=== PATIENT | female | born 1940 | race Caucasian/White ===

== ENCOUNTER 2019-09-10 08:37 | Inpatient (IN) | payer MEDICARE ==
[2019-09-10] MEDS ORDERED: Furosemide 80 MG Tab PO ONE (08:57)
[2019-09-10] MEDS ORDERED: Morphine 2 MG/ML SYRINGE IVPUSH ONE (08:58)
[2019-09-10] MEDS ORDERED: Furosemide 100 MG/10 ML SDV IV ONE (09:04)
--- NOTE | 2019-09-10 09:07 | EDM.PDOC ---
ED HPI GENERAL MEDICAL PROBLEM - General Stated Complaint: ER Time Seen by Provider: 09/10/19 08:45 Source of Information: Reports: Patient History Limitations: Reports: No Limitations - History of Present Illness INITIAL COMMENTS - FREE TEXT/NARRATIVE: Pt. presents to ER with complaints of increased shortness of breath. Daughter states that she has been experiencing this progressively over the past 4 days. Pt. was seen in [facility] on 09/06/2019 with increased shortness of breath and peripheral edema. She was started on lasix 20mg once daily and set up for an echocardiogram. Pt. has not diagnosed history of CHF. She does have a history of hypertension. Pt. denies any fever or chills. No chest pain. Denies any palpitations. Denies any nausea, vomiting, or diarrhea. Pt. is a smoker and has a history of COPD. It appears she is only on albuterol and not taking any maintenance medications for this. She has been seen in ER in the past for COPD exacerbation. Daughter states that she lives alone. She states that they have not discussed code status, and at this point, they want everything done in terms of treatment. O2 saturation on arrival to ER was approx. 50%. Nursing placed the patient on O2 per mask and it increased into the high 90% range. Onset Date: 09/07/19 Location: Reports: Chest, Generalized - Related Data Allergies Allergy/AdvReac Type Severity Reaction Status Date / Time Penicillins Allergy Cannot Verified 09/10/19 09:45 Remember Home Meds: Home Meds Acetaminophen/Diphenhydramine [Acetaminophen Pm Gelcap] 1 each PO BEDTIME PRN 10/19/13 [History] Albuterol Sulfate [Albuterol Sulfate HFA] 2 puff IH Q4H PRN 10/19/13 [History] Cholecalciferol (Vitamin D3) [Vitamin D] 2,000 unit PO DAILY 10/19/13 [History] Hydrochlorothiazide 25 mg PO DAILY 10/19/13 [History] Levothyroxine 125 mcg PO ACBRK 10/19/13 [History] Mag Hydrox/Aluminum Hyd/Simeth [Alum-Mag Hydroxide-Simeth Liq] 1 tab PO DAILY 10/19/13 [History] Simvastatin 10 mg PO DAILY 10/19/13 [History] lisinopriL [Prinivil] 10 mg PO DAILY 10/19/13 [History] metFORMIN [Glucophage] 1,000 mg PO BID 10/19/13 [History] traMADol [Ultram] 100 mg PO BID 10/19/13 [History] Clobetasol [Clobetasol Propionate 0.05%] 30 gm TOP BID 09/10/19 [History] Furosemide [Lasix] 20 mg PO DAILY 09/10/19 [History] buPROPion HCL [Wellbutrin Sr] 150 mg PO DAILY 09/10/19 [History] Past Medical History HEENT History: Reports: Cataract Cardiovascular History: Reports: High Cholesterol, Hypertension Respiratory History: Reports: Asthma, Bronchitis, Recurrent, COPD Other Respiratory History: Denies any significant respiratory history, however does have Spiriva Inhaler and Albuterol prescibed to her that she uses when the weather is humid Gastrointestinal History: Reports: None Genitourinary History: Reports: UTI, Recurrent Musculoskeletal History: Reports: Back Pain, Chronic, Osteoarthritis Other Musculoskeletal History: Has history of chronic back pain that she states has had since she was 7-8 years old. Also, states has some arthritis in her back. Neurological History: Reports: None Endocrine/Metabolic History: Reports: Diabetes, Type II, Hypothyroidism, Other (See Below) Other Endocrine/Metabolic History: goiter, mgd Hematologic History: Reports: Other (See Below) Other Hematologic History: hypocalcemia, vit d def, Oncologic (Cancer) History: Reports: Bladder Dermatologic History: Reports: Psoriasis - Past Surgical History HEENT Surgical History: Reports: Cataract Surgery Female Surgical History: Reports: Section, D&C, Tubal Ligation Social & Family History - Caffeine Use Caffeine Use: Reports: Coffee - Living Situation & Occupation Living situation: Reports: Alone Occupation: Unemployed ED ROS GENERAL - Review of Systems Review Of Systems: See Below Constitutional: Reports: Fatigue HEENT: Reports: No Symptoms Respiratory: Reports: Shortness of Breath. Denies: Wheezing, Cough, Sputum, Hemoptysis Cardiovascular: Reports: Dyspnea on Exertion, Orthopnea Endocrine: Reports: No Symptoms GI/Abdominal: Reports: No Symptoms : Reports: No Symptoms Musculoskeletal: Reports: No Symptoms Skin: Reports: No Symptoms Neurological: Reports: No Symptoms Psychiatric: Reports: No Symptoms Hematologic/Lymphatic: Reports: No Symptoms Immunologic: Reports: No Symptoms ED EXAM, GENERAL - Physical Exam Exam: See Below Exam Limited By: No Limitations General Appearance: Alert, WD/WN, Anxious, Mild Distress Eye Exam: Bilateral Eye: EOMI, PERRL Head: Atraumatic, Normocephalic Neck: Normal Inspection, Supple, Non-Tender, Full Range of Motion Respiratory/Chest: Decreased Breath Sounds, Crackles Cardiovascular: Normal Peripheral Pulses, Regular Rate, Rhythm Extremities: Normal Range of Motion, Non-Tender, Normal Capillary Refill Neurological: Alert, Oriented, CN II-XII Intact, Normal Cognition, Normal Ref lexes, No Motor/Sensory Deficits Psychiatric: Normal Affect, Normal Mood Skin Exam: Warm, Dry, Intact, Normal Color, No Rash EKG INTERPRETATION Rhythm: NSR QRS: LBBB Course - Vital Signs Last Recorded V/S: Last Vital Signs Temp Pulse 89 09/10/19 09:35 Resp 20 09/10/19 09:59 BP 120/57 L 09/10/19 09:35 Pulse Ox 93 L 09/10/19 09:59 - Orders/Labs/Meds Orders: Active Orders 24 hr Category Date Time Status EKG Documentation Completion [RC] STAT Care 09/10/19 08:55 Active CULTURE BLOOD [BC] Stat Lab 09/10/19 09:12 Received CULTURE BLOOD [BC] Stat Lab 09/10/19 09:19 Received Sodium Chloride 0.9% [Saline Flush] Med 09/10/19 08:55 Active 10 ml FLUSH ASDIRECTED PRN Blood Culture x2 Reflex Set [OM.PC] Stat Oth 09/10/19 08:56 Ordered Peripheral IV Insertion Adult [OM.PC] Routine Oth 09/10/19 08:56 Ordered Medication Orders Sodium Chloride (Saline Flush) 10 ml FLUSH ASDIRECTED PRN PRN Reason: Keep Vein Open Labs: Laboratory Tests 09/10/19 09/10/19 09/10/19 Range/Units 09:12 09:12 09:12 WBC 5.7 (4.0-10.0) x10^3/uL RBC 4.97 (4.00-5.50) x10^6/uL Hgb 11.8 L D (12.0-16.0) g/dL Hct 40.2 (33.0-47.0) % MCV 80.9 D (78.0-93.0) fL MCH 23.7 L (26.0-32.0) pg MCHC 29.4 L (32.0-36.0) g/dL RDW Coeff of Shannon 17.6 H (10.0-15.0) % Plt Count 156 (130-400) x10^3/uL Neut % (Auto) 83.2 H (50.0-80.0) % Lymph % (Auto) 8.9 L (25.0-50.0) % Coles % (Auto) 7.2 (2.0-11.0) % Eos % (Auto) 0.5 (0.0-4.0) % Baso % (Auto) 0.2 (0.2-1.2) % PT 10.7 (9.5-12.3) SEC INR 1.0 L (2.0-3.5) POC ABG pH (7.35-7.45) POC ABG pCO2 (35-45) mmHG POC ABG pO2 (80-105) mmHG POC ABG HCO3 (22-26) mmol/L POC ABG Total CO2 (23-27) mmol/L POC ABG O2 Sat (95-98) % POC ABG Base Excess (-2-3) mmol/L POC O2 Flow Rate L/min POC FiO2 Sodium 138 (136-145) mmol/L Potassium 4.6 (3.5-5.1) mmol/L Chloride 97 L (98-107) mmol/L Carbon Dioxide 38 H D (21-32) mmol/L Anion Gap 7.6 L (10-20) mmol/L BUN 45 H (7-18) mg/dL Creatinine 1.7 H (0.55-1.02) mg/dL Est Cr Clr Drug Dosing 24.94 mL/min Estimated GFR (MDRD) 29 Glucose 131 H (74-106) mg/dL Lactic Acid (0.4-2.0) mmol/L Calcium 9.0 (8.5-10.1) mg/dL Corrected Calcium 9.56 (8.5-10.1) mg/dL Magnesium 1.8 (1.8-2.4) mg/dL Total Bilirubin 0.5 (0.2-1.0) mg/dL AST 18 (15-37) U/L ALT 18 (14-59) U/L Alkaline Phosphatase 64 (46-116) U/L Troponin I 0.024 (<=0.056) ng/mL C-Reactive Protein 0.4 (<=0.9) mg/dL NT-Pro-B Natriuret Pep (<=450) pg/mL Total Protein 7.2 (6.4-8.2) g/dL Albumin 3.3 L (3.4-5.0) g/dL Globulin 3.9 Albumin/Globulin Ratio 0.85 POC Result Comm COVID-19 (LYSSA) (NEGATIVE) 09/10/19 09/10/19 09/10/19 Range/Units 09:12 09:12 09:30 WBC (4.0-10.0) x10^3/uL RBC (4.00-5.50) x10^6/uL Hgb (12.0-16.0) g/dL Hct (33.0-47.0) % MCV (78.0-93.0) fL MCH (26.0-32.0) pg MCHC (32.0-36.0) g/dL RDW Coeff of Shannon (10.0-15.0) % Plt Count (130-400) x10^3/uL Neut % (Auto) (50.0-80.0) % Lymph % (Auto) (25.0-50.0) % Coles % (Auto) (2.0-11.0) % Eos % (Auto) (0.0-4.0) % Baso % (Auto) (0.2-1.2) % PT (9.5-12.3) SEC INR (2.0-3.5) POC ABG pH (7.35-7.45) POC ABG pCO2 (35-45) mmHG POC ABG pO2 (80-105) mmHG POC ABG HCO3 (22-26) mmol/L POC ABG Total CO2 (23-27) mmol/L POC ABG O2 Sat (95-98) % POC ABG Base Excess (-2-3) mmol/L POC O2 Flow Rate L/min POC FiO2 Sodium (136-145) mmol/L Potassium (3.5-5.1) mmol/L Chloride (98-107) mmol/L Carbon Dioxide (21-32) mmol/L Anion Gap (10-20) mmol/L BUN (7-18) mg/dL Creatinine (0.55-1.02) mg/dL Est Cr Clr Drug Dosing mL/min Estimated GFR (MDRD) Glucose (74-106) mg/dL Lactic Acid 1.3 (0.4-2.0) mmol/L Calcium (8.5-10.1) mg/dL Corrected Calcium (8.5-10.1) mg/dL Magnesium (1.8-2.4) mg/dL Total Bilirubin (0.2-1.0) mg/dL AST (15-37) U/L ALT (14-59) U/L Alkaline Phosphatase (46-116) U/L Troponin I (<=0.056) ng/mL C-Reactive Protein (<=0.9) mg/dL NT-Pro-B Natriuret Pep 4094 H (<=450) pg/mL Total Protein (6.4-8.2) g/dL Albumin (3.4-5.0) g/dL Globulin Albumin/Globulin Ratio POC Result Comm COVID-19 (LYSSA) Negative (NEGATIVE) 09/10/19 Range/Units 10:00 WBC (4.0-10.0) x10^3/uL RBC (4.00-5.50) x10^6/uL Hgb (12.0-16.0) g/dL Hct (33.0-47.0) % MCV (78.0-93.0) fL MCH (26.0-32.0) pg MCHC (32.0-36.0) g/dL RDW Coeff of Shannon (10.0-15.0) % Plt Count (130-400) x10^3/uL Neut % (Auto) (50.0-80.0) % Lymph % (Auto) (25.0-50.0) % Coles % (Auto) (2.0-11.0) % Eos % (Auto) (0.0-4.0) % Baso % (Auto) (0.2-1.2) % PT (9.5-12.3) SEC INR (2.0-3.5) POC ABG pH 7.305 L (7.35-7.45) POC ABG pCO2 81 H* (35-45) mmHG POC ABG pO2 65 L (80-105) mmHG POC ABG HCO3 40 H (22-26) mmol/L POC ABG Total CO2 43 H (23-27) mmol/L POC ABG O2 Sat 89 L (95-98) % POC ABG Base Excess 14 H (-2-3) mmol/L POC O2 Flow Rate 4.00 L/min POC FiO2 0.36 Sodium (136-145) mmol/L Potassium (3.5-5.1) mmol/L Chloride (98-107) mmol/L Carbon Dioxide (21-32) mmol/L Anion Gap (10-20) mmol/L BUN (7-18) mg/dL Creatinine (0.55-1.02) mg/dL Est Cr Clr Drug Dosing mL/min Estimated GFR (MDRD) Glucose (74-106) mg/dL Lactic Acid (0.4-2.0) mmol/L Calcium (8.5-10.1) mg/dL Corrected Calcium (8.5-10.1) mg/dL Magnesium (1.8-2.4) mg/dL Total Bilirubin (0.2-1.0) mg/dL AST (15-37) U/L ALT (14-59) U/L Alkaline Phosphatase (46-116) U/L Troponin I (<=0.056) ng/mL C-Reactive Protein (<=0.9) mg/dL NT-Pro-B Natriuret Pep (<=450) pg/mL Total Protein (6.4-8.2) g/dL Albumin (3.4-5.0) g/dL Globulin Albumin/Globulin Ratio POC Result Comm Called critical res COVID-19 (LYSSA) (NEGATIVE) Meds: Medications Generic Name Dose Route Start Last Admin Trade Name Freq PRN Reason Stop Dose Admin Sodium Chloride 10 ml 09/10/19 08:55 Saline Flush FLUSH ASDIRECTED PRN Keep Vein Open Discontinued Medications Generic Name Dose Route Start Last Admin Trade Name Freq PRN Reason Stop Dose Admin Furosemide 60 mg 09/10/19 08:57 09/10/19 09:20 Lasix PO 09/10/19 08:58 Not Given ONETIME ONE Furosemide 60 mg 09/10/19 09:04 09/10/19 09:20 Lasix IV 09/10/19 09:05 Not Given ONETIME ONE Furosemide Confirm 09/10/19 09:16 09/10/19 09:12 Lasix Administered 09/10/19 09:17 60 mg Dose Administration 60 mg .ROUTE .STK-MED ONE Morphine Sulfate 2 mg 09/10/19 08:58 09/10/19 09:17 Morphine IVPUSH 09/10/19 08:59 2 mg ONETIME ONE Administration - Radiology Interpretation Free Text/Narrative:: CHF, no obvious infiltrate noted. - Re-Assessments/Exams Free Text/Narrative Re-Assessment/Exam: Room air O2 sat was 50%. She was placed on O2 per non-rebreather and saturation improved to the mid to high 90s. Pt. was given lasix 60mg IV and morphine 2 mg IV. She reported feeling much improved a short time later. Lung sounds improved significantly. Departure - Departure Time of Disposition: 10:44 Disposition: DC/Tfer to [facility] 02 Clinical Impression: Congestive heart failure - Discharge Information Sepsis Event Note (ED) - Focused Exam Vital Signs: Vital Signs Pulse Resp BP Pulse Ox 09/10/19 09:59 20 93 L 09/10/19 09:35 89 20 120/57 L 91 L 09/10/19 09:12 20 98 09/10/19 09:06 20 97 09/10/19 08:57 20 98 09/10/19 08:40 92 20 140/59 L 46 L - Problem List Review Problem List Initiated/Reviewed/Updated: Yes - My Orders Last 24 Hours: My Active Orders 09/10/19 08:55 EKG Documentation Completion [RC] STAT Sodium Chloride 0.9% [Saline Flush] 10 ml FLUSH ASDIRECTED PRN 09/10/19 08:56 Blood Culture x2 Reflex Set [OM.PC] Stat Peripheral IV Insertion Adult [OM.PC] Routine 09/10/19 09:12 CULTURE BLOOD [BC] Stat 09/10/19 09:19 CULTURE BLOOD [BC] Stat - Assessment/Plan Last 24 Hours: My Active Orders 09/10/19 08:55 EKG Documentation Completion [RC] STAT Sodium Chloride 0.9% [Saline Flush] 10 ml FLUSH ASDIRECTED PRN 09/10/19 08:56 Blood Culture x2 Reflex Set [OM.PC] Stat Peripheral IV Insertion Adult [OM.PC] Routine 09/10/19 09:12 CULTURE BLOOD [BC] Stat 09/10/19 09:19 CULTURE BLOOD [BC] Stat Plan: Pt. will be admitted acutely by Dr. Hernandez. Discussed findings with patient and family. They wish for the patient to be a code 1. All questions were answered.
[2019-09-10] MEDS ORDERED: Furosemide 20 MG/2 ML VIAL ONE (09:16)
[2019-09-10 10:00] LABS: ANION GAP 7.6 mmol/L (10-20)
--- NOTE | 2019-09-10 10:01 | CR ---
[id number] RAD/RAD Chest PA or AP 1V EXAM: RAD Chest PA or AP 1V INDICATION: SHORTNESS OF BREATH. COMPARISON: March 2015. DISCUSSION: Cardiomegaly and central vascular congestion. Bilateral pleural effusions and bibasal parenchymal opacities. Bilateral lower lobe predominant interlobular septal thickening. Findings are most consistent with fluid retention secondary, likely CHF exacerbation. IMPRESSION: As above. Buck Zee MD 09/10/19 1000 Thank you for allowing us to participate in the care of your patient.
[2019-09-10] MEDS ORDERED: Albuterol/Ipratropium 3.0-0.5 MG/3 ML Neb Soln NEB PRN (11:26)
[2019-09-10] MEDS ORDERED: Aspirin 81 MG Tab.Chew PO SCH (11:38)
[2019-09-10] MEDS: Aspirin 81 MG Tab.EC PO SCH (12:30)
[2019-09-10] MEDS: Enoxaparin 40 MG/0.4 ML Syringe SUBCUT SCH (12:30)
[2019-09-10] MEDS ORDERED: Acetaminophen/Diphenhydramine 500-25 MG Tab PO PRN (14:30)
[2019-09-10] MEDS: Albuterol/Ipratropium 3.0-0.5 MG/3 ML Neb Soln NEB SCH ×2 (14:49→22:43)
[2019-09-10] MEDS: Nicotine 14 MG/24 Hr Patch TRDERM SCH (20:13)
[2019-09-10] MEDS: traMADol 50 MG Tab PO SCH (20:14)
[2019-09-10] MEDS: Simvastatin 10 MG Tab PO SCH (20:14)
--- NOTE | 2019-09-10 21:27 | HP ---
CHIEF COMPLAINT: Shortness of breath. HISTORY OF PRESENT ILLNESS: This is a 78-year-old female who has no history of heart failure, but has been on hydrochlorothiazide for blood pressure, who was in the clinic last week due to depression and weight gain. She had been in the office in July and had gained 6 pounds in 1 month and had increased edema with some weeping of the legs, but no chest pain. The patient was started on Lasix, but her breathing did not improve. A couple of days ago, she sort of went for a ride with her son and the golf cart and injured her knee, which made her feel worse, and then today she woke up early during the night, almost needed help to get to the bathroom. Her family brought her to the clinic this morning, but due to her respiratory distress, she was encouraged to go to the ER. The patient has not had any fever, chills. She had some coughing and does have a history of smoking and COPD, but she feels like her cough was getting better. She was not coughing up anything. She was using her inhaler and at times it was helping more than others. The patient is not on oxygen at home. When she got to the ER, her saturations were around 50% and she felt significantly better when they placed her on oxygen. The patient received 60 mg of Lasix and 2 mg of IV morphine and improved in a short time in the ER. The patient otherwise feels like her leg is better today. One leg is not more swollen than the other. ALLERGIES: Do include penicillin. MEDICATION LIST: Reviewed. Shows her to be on Lasix 20 mg daily, Wellbutrin should be XL 150 daily, metformin 1000 b.i.d., tramadol 100 mg daily, Zocor 10 mg daily, lisinopril 10 mg daily, levothyroxine 125 daily, albuterol 2 puffs every 4 hours as needed for wheezing, hydrochlorothiazide 25 mg daily, clobetasol cream, antacid, Benadryl, vitamin D3. PAST MEDICAL HISTORY: Includes COPD, uses albuterol p.r.n. Used to be on Spiriva, but used it infrequently. Hospitalized for pneumonia only once. Degenerative joint disease of the low back, on tramadol; diabetes type 2, on metformin; generalized osteoarthritis in the knees; goiter, surgically removed at [facility]; history of bladder cancer; hyperlipidemia; essential hypertension; hypothyroidism; obesity; psoriasis; smoking, continues; previous UTI with Klebsiella; vitamin D deficiency. PAST SURGICAL HISTORY: The patient has had thyroidectomy, cystoscopy for bladder tumor removal, , cholecystectomy, and cataract surgery. FAMILY HISTORY: Both parents are . 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 She has 5 children. She is a current smoker. No alcohol use. REVIEW OF SYSTEMS: General: The patient has had weight gain. She has not had fever, chills. Has had more weakness. Psychologic: She has had more depression. It was noted in a recent visit that she was concerned about going into a fpc. She was started on bupropion SR, but only once daily, so we will change her to XL here. Cardiac: No chest pain, no palpitations, but has orthopnea, but chronically normally sleeps in a chair. She has had edema. Respiratory: As stated in HPI. Abdomen: No nausea, vomiting, diarrhea. Otherwise, all systems reviewed and found to be negative unless otherwise stated. PHYSICAL EXAMINATION: Vital Signs: Hospital admission, temperature 96.7, weight 97.9 kg. Blood pressure 99/51, respiratory rate 14, O2 of 91% on 2.5 L, earlier today 96% on 4 L. General: She is in no acute distress. Heart: Regular rate and rhythm. S1, S2 without murmur. She does appear mildly pale. Lungs: Her lung sounds are decreased throughout. I currently do not appreciate any crackles, but reported earlier this morning by the ER provider. Abdomen: Nondistended, nontender. Extremities: Warm and dry. She has 2+ edema to the mid koch. She has some weeping, but no open sores or ulcers. She has some excoriations and dryness to her ankles. Neck: Otherwise, lymphadenopathy is not present in her cervical area. I did not appreciate any JVD and she is mildly obese. LABORATORY WORK: Did show negative troponin 0.024, but proBNP 4094 similar to the other day. COVID negative. Albumin 3.3. Sodium 138, potassium 4.6, chloride 97, bicarb 38, BUN 45, creatinine 1.7, which is up from 1.3 a month ago, and she admitted to taking NSAIDs. Then, glucose 131, lactic 1.3, calcium 9, magnesium 1.8. ALT, AST, bilirubin, alk phos all normal. White count normal 5.7, hemoglobin 11.8, similar to previous checks, platelets 156. INR 1. ABG: pH 7.3, pCO2 high at 81, pO2 of 65, HCO3 of 40. ASSESSMENT: 1. Acute on chronic heart failure exacerbation, unspecified. Could be systolic versus diastolic. Echo is pending as an outpatient. 2. Acute on chronic renal failure, possibly due to hypotension, and newly started on Lasix. 3. Diabetes type 2, well controlled, not on long-term insulin without complications. 4. Chronic obstructive pulmonary disease and current smoking. 5. Generalized osteoarthritis. 6. Hypothyroidism. 7. Depression. PLAN: At this point, the patient is admitted. EKG was reviewed. No acute IN. She has a left bundle-branch block, which she did have in the past. She will be placed on telemetry. We will give her IV Lasix 60 mg to continue q.12 hours. We will continue oxygen. I will also place her on scheduled and p.r.n. DuoNebs. We will do daily weights and monitor in's and out's. We will get Digital Account Supervisor involved as well. I will get her up and working with therapies. Anticipate she will need at least a 2-night stay. For her mild anemia, we will repeat a hemoglobin tomorrow, but she is at risk for DVT. Therefore, I will place her on Lovenox 40 mg daily. For her diabetes, we will do q.i.d. Accu- Cheks. We will hold on the metformin for now given her renal insufficiency and start insulin if indicated. DEBBIA: 09/10/2019 17:42:19 MODL: 09/10/2019 21:19:04 /[id number]
[2019-09-11] MEDS ORDERED: Levothyroxine 125 MCG Tab PO SCH (07:00)
[2019-09-11] MEDS: Albuterol/Ipratropium 3.0-0.5 MG/3 ML Neb Soln NEB SCH ×3 (07:18→22:06)
[2019-09-11 07:30] LABS: ANION GAP 5.5 mmol/L (10-20)
[2019-09-11] MEDS ORDERED: Aluminum Hydroxide/Magnesium Hydroxide/Simethicone Susp 30 ML Cup PO SCH (08:00)
[2019-09-11] MEDS: Aspirin 81 MG Tab.EC PO SCH (08:26)
[2019-09-11] MEDS: buPROPion 150 MG Tab.ER PO SCH (08:26)
[2019-09-11] MEDS: traMADol 50 MG Tab PO SCH (08:26)
[2019-09-11] MEDS: Nicotine 14 MG/24 Hr Patch TRDERM SCH (08:26)
[2019-09-11] MEDS: Enoxaparin 40 MG/0.4 ML Syringe SUBCUT SCH (08:33)
--- NOTE | 2019-09-11 10:08 | CR ---
[id number] RAD/RAD Chest PA And Lateral EXAM: RAD Chest PA And Lateral INDICATION: HYPOXIA. COMPARISON: September 10, 2019. DISCUSSION: The heart is enlarged. Mild central pulmonary vascular congestion is not changed. Mall bilateral pleural effusions. Associated atelectasis. Pulmonary hyperinflation. IMPRESSION: Stable chest with findings consistent with CHF exacerbation. Moshe Moyer DO 09/11/19 1007 Thank you for allowing us to participate in the care of your patient.
[2019-09-11] MEDS ORDERED: traMADol 50 MG Tab PO PRN (17:17)
--- NOTE | 2019-09-11 17:56 | PN ---
Progress Note for FEDE KRUEGER Date: 09/11/2019 Room #: VM.204 SUBJECTIVE: This is hospital day #2 on a 78-year-old admitted with an acute heart failure exacerbation. She has no history of heart failure and was supposed to have an echo today outpatient for her EF. However, she is in the hospital now. She got 60 mg of IV Lasix yesterday due to low blood pressures. I did not repeat the dose. She had good diuresis of 1.7 L. She feels like her breathing has improved. She is denying any cough. She denies any chest pain. Her oxygen has been weaned down to 2.5 L from 4 L on admission. She is normally not on oxygen at home. She continues to smoke. She got her nicotine patch today. She has been afebrile. Eating 100% of her meals. Has not yet had a bowel movement. OBJECTIVE: Vital Signs: Her temperature 97.9, pulse 76, blood pressure 89/42, respiratory rate 16, O2 of 93% on 2.5 L. She has also had several blood pressures repeated. It has been over 100 systolic on the right arm when it was low on the left, but then later the nurse stated the left arm was higher. They have been checking them all manually. The patient reports that her blood pressure was not an issue in the past, but she got placed on lisinopril. I told her that was likely due to her diabetes. She has had well-controlled blood sugars off metformin. General: She is in no acute distress. Heart: Regular rate and rhythm. S1, S2 without murmur. Lungs: Sounds are clear to auscultation bilaterally without crackles or wheezes. Abdomen: Nondistended. Extremities: Warm and dry. Still trace edema to the ankles. Mental Status: She is alert and orientated x3. Neck: No JVD was appreciated. LABORATORY DATA: Her lab work today did show her white count to be normal at 4.9, hemoglobin dropped to 10.3, platelets 125. Sodium 140, potassium 4.5, chloride 98, bicarb 41, BUN 44, creatinine 1.8, glucose 83. Troponin 0.029, normal. Calcium is 9. ASSESSMENT AND PLAN: 1. Acute on chronic heart failure exacerbation, unspecified. Further diuresis held today due to hypotension. The patient is asymptomatic. 2. History of hypertension, but now with hypotension. The patient is asymptomatic. We will continue to monitor. 3. Acute on chronic renal failure. Her creatinine worsened slightly, up to 1.8 today. We will recheck tomorrow. 4. Type 2 diabetes, controlled off metformin. 5. Chronic obstructive pulmonary disease, chronic. She is on scheduled and p.r.n. nebulizers. 6. Depression. She is on bupropion. 7. Chronic pain due to osteoarthritis. She is on her tramadol, but we will change it to p.r.n. 8. Smoking. She is on a nicotine patch. 9. Hypothyroidism, replaced. PLAN: At this point, the patient will continue on acute cares. She will continue off IV diuretics with close monitoring of blood pressure. We will see if we can re-dose tomorrow. Chest x-ray that was repeated today still shows small bilateral pleural effusions. Due to her hypercapnia on initial ABG, I will check a venous ABG in the morning. We will continue with oxygen. She will likely need a home O2 study prior to discharge. MKA: 09/11/2019 17:22:39 MODL: 09/11/2019 17:50:01 /[id number]
[2019-09-11] MEDS: Simvastatin 10 MG Tab PO SCH (20:00)
[2019-09-12] MEDS: Levothyroxine 125 MCG Tab PO SCH (06:24)
[2019-09-12 07:03] LABS: ANION GAP 1.9 mmol/L (10-20)
[2019-09-12] MEDS: Albuterol/Ipratropium 3.0-0.5 MG/3 ML Neb Soln NEB SCH ×3 (07:07→22:01)
[2019-09-12] MEDS ORDERED: Furosemide 20 MG/2 ML VIAL IV ONE (08:43)
[2019-09-12] MEDS: Nicotine 14 MG/24 Hr Patch TRDERM SCH (08:49)
[2019-09-12] MEDS: buPROPion 150 MG Tab.ER PO SCH (08:51)
[2019-09-12] MEDS: Aspirin 81 MG Tab.EC PO SCH (08:52)
[2019-09-12] MEDS: Doxycycline 100 MG Cap PO SCH ×2 (09:04→19:32)
[2019-09-12] MEDS: Sodium Chloride 0.9% 10 ML Syringe FLUSH PRN (09:06)
--- NOTE | 2019-09-12 11:21 | PN ---
Progress Note for FEDE KRUEGER Date: 09/12/2019 Room #: VM.204 SUBJECTIVE: This is hospital day #3 on a 78-year-old admitted with an acute on chronic heart failure exacerbation, unknown if systolic or diastolic. She has no history of heart disease or heart failure despite significant smoking history. She had been on hydrochlorothiazide, recently was started on 20 mg daily of Lasix, but her breathing got worse. She states she is coughing more again, even more in the hospital than she was at home. She has not been on oxygen, but she has had lower sats like 86% to 88% in the clinic and is a long- term smoker, but has not ever been admitted with pneumonia or exacerbation, and used albuterol only infrequently, and in the past Spiriva infrequently. She has been afebrile. She is denying any pain in her chest. She does have some pain in the right knee, which she did fall on a few days ago. She does not feel an x- ray is needed. She has had chronic arthritis and even had injections remotely. She normally takes tramadol up to twice daily at home, but has not used any doses since yesterday morning. OBJECTIVE: Vital Signs: Her temperature is 98.8, pulse 79, blood pressure 98/50, respiratory rate 20, O2 of 92 on 3 L, she was 94 on 2-1/2 during the night. Heart: Regular rate and rhythm without murmur. Lungs: Sounds are clear to auscultation, but decreased without crackles or wheezes. Abdomen: Nondistended, nontender. She has not had a bowel movement. Extremities: Warm and dry. She has tenderness to palpation of both shins. She still has 1+ edema to both shins. She was on DVT prophylaxis on admission, however, hemoglobin had dropped, so this has been held. It is stable today at 10.1. Mental Status: She is alert and orientated x3. Psychiatric: She is a little upset about not getting salt. The benefits of a low-salt diet were explained to her. LABORATORY DATA: Lab work does show white count 7.4, hemoglobin 10.1, platelets 108. PCO2 was 79 on venous blood gas, it was over 80 on admission. She never was placed on BiPAP. She has not been somnolent or sleepy. Sodium 139, potassium 4.9, chloride 99, bicarb 43, BUN 43, creatinine 1.8, glucose 99, calcium 8.9. Troponin yesterday was negative. ASSESSMENT AND PLAN: 1. Acute heart failure exacerbation. She does not have a history of this, it newly started in the clinic last week. We will continue diuresis today with 20 mg IV x1, yesterday it was held due to hypotension. 2. History of hypertension, on DEWEY inhibitor and hydrochlorothiazide, but now with hypotension. It is asymptomatic, her blood pressure. We will continue to monitor closely, especially giving Lasix. 3. Acute on chronic renal failure. Creatinine is the same today. Baseline is around 1.3. We will recheck tomorrow. 4. Type 2 diabetes, controlled off metformin. She is on no medications currently. We will decrease her Accu-Cheks to twice daily. 5. Chronic obstructive pulmonary disease, chronic, probably with an exacerbation. She is on p.r.n. nebulizers and scheduled. She does not think they are helping. I am going to go ahead and treat her with 7 days of doxycycline for exacerbation. 6. Depression. She is on bupropion, recently started. 7. Chronic pain with osteoarthritis and a recent right knee injury. She is working with PT. She has tramadol available p.r.n. 8. Smoking. She is on the nicotine patch. 9. Hypothyroidism, replaced, level was normal in July. 10.Acute on chronic hypoxic and hypercapnic respiratory failure. The patient will very likely go home on oxygen. We will do a home O2 eval. I will also have them titrate her oxygen down targeting a level of 88% due to her hypercapnia. PLAN: At this point, the patient will continue acute cares. We will give her an IV dose of Lasix today. Repeat lab work tomorrow including venous ABGs. Repeat a chest x-ray tomorrow. Home O2 eval. Work on having a bowel movement and check for blood in her stool. She has been taken off all NSAIDs in the previous months due to worsening renal insufficiency. Dietitian consult also for a low-salt diet. MKA: 09/12/2019 09:34:02 MODL: 09/12/2019 11:15:13 /[id number] EMERITA
[2019-09-12] MEDS: Simvastatin 10 MG Tab PO SCH (19:32)
[2019-09-13] MEDS: Levothyroxine 125 MCG Tab PO SCH (06:27)
[2019-09-13] MEDS: Albuterol/Ipratropium 3.0-0.5 MG/3 ML Neb Soln NEB SCH ×3 (06:28→22:56)
[2019-09-13 07:18] LABS: ANION GAP 2.7 mmol/L (10-20)
[2019-09-13] MEDS ORDERED: Bisacodyl 10 MG Supp RECTAL ONE (09:03)
[2019-09-13] MEDS ORDERED: Furosemide 20 MG/2 ML VIAL IV ONE (09:09)
[2019-09-13] MEDS: Nicotine 14 MG/24 Hr Patch TRDERM SCH (09:15)
[2019-09-13] MEDS: Aspirin 81 MG Tab.EC PO SCH (09:17)
[2019-09-13] MEDS: buPROPion 150 MG Tab.ER PO SCH (09:17)
[2019-09-13] MEDS: Doxycycline 100 MG Cap PO SCH ×2 (09:17→20:50)
[2019-09-13] MEDS: Sodium Chloride 0.9% 10 ML Syringe FLUSH PRN (09:40)
[2019-09-13] MEDS: Enoxaparin 30 MG/0.3 ML Syringe SUBCUT SCH (09:41)
--- NOTE | 2019-09-13 10:20 | PN ---
Progress Note for FEDE KRUEGER Date: 09/13/2019 Room #: VM.204 SUBJECTIVE: This is hospital day #4 on a 78-year-old admitted with an acute heart failure exacerbation with a new diagnosis of heart failure in the previous week. Unknown if it is systolic or diastolic. Her troponins were negative. She also has underlying COPD and is smoking, but was not on oxygen. Her sats were at 50%. Yesterday, they were at 80% on room air during her limited home O2 eval. The patient's telemetry has had a significant amount of artifact. It does not appear that she had any abnormal rhythms. They will be changing out her leads today. She states she feels much better. She is hopeful to go home because she cannot sleep here. She can get limited visitors only. The patient was able to get 20 mg of IV Lasix yesterday and her blood pressure has been excellent. She has had a total of 2100 out now and is eating 100% of her meals, but has not had a bowel movement since admission. The patient is on tramadol p.r.n. for pain. Did take some initially for her knee pain, but has not used any in the last 2 days. She states she takes sleeping pills at home and nothing has been ordered for her here. She had CO2 retention and her pCO2 continues to be elevated. She was encouraged to try BiPAP. She is considering trying it this evening. We did initially avoid it due to concern for claustrophobia. Her hemoglobins have remained stable. We have not gotten a Hemoccult due to no stools. I will be restarting Lovenox today. Blood sugars are excellent. She is denying pain. She did injure her right knee around 08/31. She was working with PT, but has not yet done steps. OBJECTIVE: Vital Signs: Today, her temperature 97.4, pulse 80, blood pressure 111/48, respiratory rate 17, O2 of 91% on 3 L, was 2 L last evening, was 86%. General: She is in no acute distress. Heart: Regular rate and rhythm. S1, S2 without murmur. Lungs: Lung sounds are decreased, but no crackles. No wheezes appreciated. Abdomen: Nondistended. Extremities: Warm and dry. She still has 2+ edema to her shins with Bean wraps in place. However, she is sitting in her chair all day. She did try it in the bed last night, but did not tolerate it. Mental Status: She is alert and oriented x3. Psych: She seems depressed. She talks about not getting to see her grandkids regularly due to the COVID. LABORATORY WORK: Today does show her to have a white count of 5.1, hemoglobin 10.2, platelets 112. PCO2 of venous was 82. Her sodium 142, potassium 4.7, chloride 100, bicarb 44, BUN 39, creatinine 1.4, glucose 108, calcium 9.1. ASSESSMENT: 1. Acute heart failure exacerbation. No ejection fraction on file. Outpatient echo is planned. We will give her another 20 mg of intravenous Lasix today. As her blood pressure looks to be okay, anticipate it may go lower, like around 90 systolic, which would be okay. 2. History of hypertension. Due to hypotension, BEAN inhibitor and hydrochlorothiazide have been on hold. 3. Acute on chronic renal failure. Her creatinine improved down to 1.4 from 1.8. Her baseline is 1.3. 4. Type 2 diabetes, well controlled, off metformin. 5. Chronic obstructive pulmonary disease, chronic, with exacerbation. She is now on doxycycline day #2 and p.r.n. and scheduled nebulizers. She is using p.r.n.'s. We will check a chest x-ray tomorrow. 6. Depression. She is on bupropion, recently started. 7. Insomnia. We will try a small dose of Klonopin tonight due to the fact she is in the hospital with close monitoring and has not used tramadol. 8. CO2 retention. 9. Acute hypoxic and hypercapnic respiratory failure. She seems stable, but due to hypercapnia, we are going to try some BiPAP. 10.Smoking. 11.Hypothyroidism. PLAN: The patient will continue acute care. She was hoping to go home. Discussed with her that going home would mean more of a comfort and palliative measure and she is not ready for that. Understands that we are still working on things to medically optimize her. We will have to repeat that home O2 eval. We will get PT to keep working with her and do stairs today. We will repeat lab work tomorrow. We will get the stool study for Hemoccult even if we need to do a supp to get her bowels going, and we will try a dose of Lovenox today for DVT prophylaxis as she would be high risk. MKA: 09/13/2019 09:18:30 MODL: 09/13/2019 10:14:28 /[id number]
[2019-09-13] MEDS: Simvastatin 10 MG Tab PO SCH (20:50)
[2019-09-13] MEDS: ClonazePAM 0.5 MG Tab PO SCH (20:50)
[2019-09-14] MEDS: Albuterol/Ipratropium 3.0-0.5 MG/3 ML Neb Soln NEB SCH ×2 (06:16→15:51)
[2019-09-14] MEDS: Levothyroxine 125 MCG Tab PO SCH (06:16)
[2019-09-14 07:08] LABS: ANION GAP 1.4 mmol/L (10-20)
[2019-09-14] MEDS: Nicotine 14 MG/24 Hr Patch TRDERM SCH (09:34)
[2019-09-14] MEDS: Aspirin 81 MG Tab.EC PO SCH (09:36)
[2019-09-14] MEDS: buPROPion 150 MG Tab.ER PO SCH (09:36)
[2019-09-14] MEDS: Doxycycline 100 MG Cap PO SCH ×2 (09:36→20:02)
--- NOTE | 2019-09-14 09:50 | CR ---
[id number] RAD/RAD Chest PA And Lateral EXAM: RAD Chest PA And Lateral CLINICAL DATA: HYPOXIA COMPARISON: CORRELATION IS MADE WITH SEPTEMBER 11, 2019 FINDINGS: The lungs are clear. The cardiomediastinal contour is enlarged but stable. The regional bones and soft tissues are unremarkable. IMPRESSION: NO ACUTE PROCESS. Americo Ordonez MD 09/14/19 0949 Thank you for allowing us to participate in the care of your patient.
[2019-09-14] MEDS: Enoxaparin 30 MG/0.3 ML Syringe SUBCUT SCH (10:25)
--- NOTE | 2019-09-14 16:37 | DISCH ---
PRIMARY DISCHARGE DIAGNOSES: 1. Acute heart failure exacerbation with outpatient echocardiogram planned, unknown if it is systolic or diastolic. 2. Acute on chronic chronic obstructive pulmonary disease with exacerbation. 3. Acute hypoxic respiratory failure secondary to chronic obstructive pulmonary disease and heart failure. 4. Hypertension with hypotension after diuresis. 5. Acute on chronic renal failure, improved with diuresis. Creatinine of 1.3 on discharge, which is her baseline. 6. Type 2 diabetes, well controlled, off metformin. 7. Depression, recently started on bupropion. 8. Insomnia. The patient normally sleeps in a chair. She was given Klonopin at bedtime and finally got a couple of hours of sleep last night. 9. CO2 retention, improved, but unable to tolerate BiPAP. 10.Smoking. 11.Hypothyroidism. REASON FOR ADMISSION: On the date of admission, this 78-year-old female who had recently been started on outpatient 20 mg daily of Lasix, came into the clinic but was transitioned over to the ER for O2 saturations of 50% on room air. The patient was given IV Lasix 60 mg. She had good diuresis, but by the next hospital day, she was too hypotensive for further Lasix yesterday. Then, I was able to give her another 20 mg IV, and she has had good output and overall is breathing better, feeling better. She was initially hopeful to go home, but then she realized that she needed some more help and is working with therapies. She is agreeable to stay on for a swing bed stay. She is denying any pain. Had injured 2 days prior to admission her right leg and knee but overall that has been doing okay. Overall, she is down 2.7 L of fluid. She did have a bowel movement yesterday without needing a suppository. Her Hemoccult was negative. Her hemoglobin remained stable at 10.4. She was receiving Lovenox for DVT prophylaxis. The patient is going over to swing bed for further therapies. She also will need her home O2 evaluation repeated. At one point, she was 80% on room air but did not have the official RT walking evaluation since she was too weak to do it with the therapist. Her discharging weight is 94 kg, which is down 6 pounds since admission. PHYSICAL EXAMINATION: Vital Signs: Discharging vitals today do include her to have a weight of 94.3 kg; temperature 98; pulse 83; blood pressure 96/48 but otherwise they have been above 100, on her left arm, it was 103/54; respiratory rate 18; and O2 of 92% on 2 L. General: She is in no acute distress. Heart: Regular rate and rhythm. S1, S2 without murmur. Lungs: Lung sounds decreased but no crackles or wheezes. Abdomen: Distended. She has a ventral hernia but no tenderness. Extremities: Warm and dry. She still has 2+ edema, but she has been sitting in the chair with her legs down. Mental Status: She is alert and orientated x3. Psychiatric: She is not depressed or anxious. DISCHARGING LABORATORY DATA: Include her to have a normal white count of 4.2, hemoglobin 10.4. ABG: pCO2 of 76 by venous. Platelet 107, it has been mildly low since admission. Creatinine 1.3, bicarbonate 45, and BUN 37. DISCHARGE PLANS AND INSTRUCTIONS: She is going over to swing bed for further therapies. She will complete the doxycycline that was started for her COPD exacerbation with a total of 7 days. She will be on Lasix 40 mg daily instead of IV Lasix. She agreed to try the BiPAP again tonight. Anticipate she will be discharged home with home health next week. Greater than 30 minutes spent on this discharge process. MKA: 09/14/2019 15:04:09 MODL: 09/14/2019 15:57:28 /[id number]
[2019-09-14 18:27] VITALS: BP 114/50; PULSE 101
[2019-09-14] MEDS: Simvastatin 10 MG Tab PO SCH (20:02)
[2019-09-14] MEDS: ClonazePAM 0.5 MG Tab PO SCH (20:02)
== END 2019-09-14 20:08 | disposition swing bed (61) | DRG 291 ==
LOC: VM.ED 08:37 → VM.MS 10:25
PROVIDERS: ADMIT Internal Medicine; ATTEND Internal Medicine
DX: I13.0 Hypertensive heart and chronic kidney disease with heart failure and stage 1 through stage 4 chronic kidney disease, or unspecified chronic kidney disease (principal); J96.01 Acute respiratory failure with hypoxia; J96.02 Acute respiratory failure with hypercapnia; N17.9 Acute kidney failure, unspecified; I50.9 Heart failure, unspecified; Z20.828 Contact with and (suspected) exposure to other viral communicable diseases; J44.9 Chronic obstructive pulmonary disease, unspecified; N18.9 Chronic kidney disease, unspecified; E11.22 Type 2 diabetes mellitus with diabetic chronic kidney disease; F32.9 Major depressive disorder, single episode, unspecified; G47.00 Insomnia, unspecified; E03.9 Hypothyroidism, unspecified; M17.0 Bilateral primary osteoarthritis of knee; F17.200 Nicotine dependence, unspecified, uncomplicated; K21.9 Gastro-esophageal reflux disease without esophagitis; E78.5 Hyperlipidemia, unspecified; Z79.890 Hormone replacement therapy; Z79.84 Long term (current) use of oral hypoglycemic drugs; Z79.899 Other long term (current) drug therapy
CPT/HCPCS: 36415; 36600; 71045; 71046; 80048; 80053; 82274; 82803; 82962; 83605; 83735; 83880; 84484; 85025; 85610; 86140; 87040; 93005; 93010; 94640; 94667; 94760; 96374; 96375; 97110-GP; 97116-GP; 97161-GP; 97530-GP; 99284-GF; 99285-25; A9270-GY; J1650; J1940; J2270; J7620-GY; U0002

== ENCOUNTER 2019-09-14 10:12 | Inpatient (IN) | payer MEDICARE ==
[2019-09-14] MEDS ORDERED: Albuterol/Ipratropium 3.0-0.5 MG/3 ML Neb Soln NEB PRN (12:25)
[2019-09-14] MEDS: Albuterol/Ipratropium 3.0-0.5 MG/3 ML Neb Soln NEB SCH (20:24)
[2019-09-14] MEDS: ClonazePAM 0.5 MG Tab PO SCH (21:27)
[2019-09-14] MEDS: Doxycycline 100 MG Cap PO SCH (21:27)
[2019-09-14] MEDS: Simvastatin 10 MG Tab PO SCH (21:27)
[2019-09-15] MEDS: Albuterol/Ipratropium 3.0-0.5 MG/3 ML Neb Soln NEB SCH ×4 (00:39→22:07)
[2019-09-15] MEDS: Levothyroxine 125 MCG Tab PO SCH (06:54)
[2019-09-15] MEDS ORDERED: Enoxaparin 30 MG/0.3 ML Syringe SUBCUT SCH (08:30)
[2019-09-15] MEDS: Nicotine 14 MG/24 Hr Patch TRDERM SCH (09:48)
[2019-09-15] MEDS: Doxycycline 100 MG Cap PO SCH ×2 (09:50→19:44)
[2019-09-15] MEDS: buPROPion 150 MG Tab.ER PO SCH (09:50)
[2019-09-15] MEDS: Aspirin 81 MG Tab.EC PO SCH (09:51)
[2019-09-15] MEDS: Furosemide 40 MG Tab PO SCH (09:51)
[2019-09-15] MEDS: Simvastatin 10 MG Tab PO SCH (19:44)
[2019-09-15] MEDS: ClonazePAM 0.5 MG Tab PO SCH (19:44)
[2019-09-16] MEDS: Albuterol/Ipratropium 3.0-0.5 MG/3 ML Neb Soln NEB SCH ×3 (06:32→23:56)
[2019-09-16] MEDS: Levothyroxine 125 MCG Tab PO SCH (06:37)
[2019-09-16] MEDS: Furosemide 40 MG Tab PO SCH ×3 (09:12→20:47)
[2019-09-16] MEDS: Nicotine 14 MG/24 Hr Patch TRDERM SCH (09:12)
[2019-09-16] MEDS: Doxycycline 100 MG Cap PO SCH ×2 (09:12→20:47)
[2019-09-16] MEDS: Aspirin 81 MG Tab.EC PO SCH (09:12)
[2019-09-16] MEDS: buPROPion 150 MG Tab.ER PO SCH (09:13)
--- NOTE | 2019-09-16 10:05 | PN ---
Progress Note for FEDE KRUEGER Date: 09/16/2019 Room #: VM.204 SUBJECTIVE: This is a 78-year-old on swing bed recovering after an acute heart failure exacerbation and COPD exacerbation. She is requiring oxygen and was not on oxygen at home. This morning, she is having a lot of leg pain. She is wearing Tubigrips for swelling and the one on the left leg was rolled down. She has no redness or warmth in that area. She does have some scabbing in that left medial ankle, but no surrounding redness. There is no tenderness down there. She has just trace edema in her lower ankle, but 3+ above the area where the roll was. There was some drainage on the dressing from that medial ankle scab. The patient has been sleeping up to 1 or 2 hours in the chair. She is not good about putting her feet up. The patient has been on tramadol for chronic osteoarthritis pain, but has not taken a dose since she has transitioned over to swing bed a few days ago. OBJECTIVE: Vital Signs: Her temperature is 98.1, blood pressure 128/66, respiratory rate 16, O2 of 88% on room air, has been 91% on 2 L. General: She is in no acute distress. Heart: Regular rate and rhythm. Chest: Lungs sounds are decreased in the bases. Extremities: As stated in HPI. Her edema is much better in the lower legs where the Tubigrips are, but she has edema above them. Mental Status: She is alert and orientated x3. LAB WORK: Glucose this morning 107. ASSESSMENT: 1. Acute heart failure exacerbation, unknown if systolic or diastolic. Outpatient echo is planned. 2. [id number]-[id number] chronic obstructive pulmonary disease exacerbation, on doxycycline, stop date in place. On nebs 3. Acute hypoxic respiratory failure due to congestive heart failure and chronic obstructive pulmonary disease. 4. Essential hypertension. Blood pressures have improved to allow for further diuresis. Her DEWEY inhibitor is on hold. 5. Acute on chronic renal failure. Lab work will be checked tomorrow. She had improving creatinine at discharge to swing bed. 6. Type 2 diabetes, controlled off metformin. 7. Depression, recently started on bupropion. 8. Insomnia. The patient has been getting some Klonopin in the evening. 9. CO2 retention, unable to tolerate BiPAP. 10.Smoking. 11.Hypothyroidism. PLAN: At this point, the patient will continue on swing bed cares. We have added some wound cares for the left leg scabbing to prevent further skin breakdown. I do not feel she has any cellulitis today. We will try to get her to keep her legs up more. I will increase her Lasix to 40 mg twice daily. Lab work is due to be repeated tomorrow. We will need to get another home O2 eval to assess prior to discharge home with home health and oxygen. The patient is requiring more care, but is hopeful that she will be able to manage at home. PT will also reassess again tomorrow. DEBBIA: 09/16/2019 09:34:15 MODL: 09/16/2019 09:55:22 /[id number] EMERITA
[2019-09-16] MEDS: ClonazePAM 0.5 MG Tab PO SCH (20:48)
[2019-09-16] MEDS: Simvastatin 10 MG Tab PO SCH (20:48)
[2019-09-17] MEDS: Albuterol/Ipratropium 3.0-0.5 MG/3 ML Neb Soln NEB SCH ×3 (06:07→22:36)
[2019-09-17] MEDS: Levothyroxine 125 MCG Tab PO SCH (06:08)
[2019-09-17 07:23] LABS: ANION GAP -4.5 mmol/L (10-20)
[2019-09-17] MEDS: Doxycycline 100 MG Cap PO SCH ×2 (08:23→20:25)
[2019-09-17] MEDS: Lactobacillus Rhamnosus GG (Probiotic) Cap PO SCH (08:23)
[2019-09-17] MEDS: Nicotine 14 MG/24 Hr Patch TRDERM SCH (08:24)
[2019-09-17] MEDS: buPROPion 150 MG Tab.ER PO SCH (08:24)
[2019-09-17] MEDS: Aspirin 81 MG Tab.EC PO SCH (08:24)
[2019-09-17] MEDS: Furosemide 40 MG Tab PO SCH (08:24)
[2019-09-17] MEDS ORDERED: ClonazePAM 0.5 MG Tab PO PRN (08:43)
--- NOTE | 2019-09-17 10:10 | CR ---
[id number] RAD/RAD Chest PA And Lateral EXAM: FRONTAL AND LATERAL CHEST INDICATION: COUGH. COMPARISON: September 14, 2019. DISCUSSION: There is stable cardiomegaly with new or increased mild central vascular congestion. Bibasilar atelectasis with no definite infiltrates. Accentuated thoracic kyphosis. IMPRESSION: 1. Cardiomegaly with mild central vascular congestion. 2. Bibasilar atelectasis with no definite acute infiltrates. The volume loss could obscure infiltrates. Floyd Meza MD 09/17/19 1009 Thank you for allowing us to participate in the care of your patient.
[2019-09-17] MEDS: Torsemide 20 MG Tab PO SCH ×2 (13:05→15:25)
--- NOTE | 2019-09-17 18:42 | PN ---
Progress Note for FEDE KRUEGER Date: 09/17/2019 Room #: VM.204 SUBJECTIVE: This is a 78-year-old on swing bed after CHF and COPD exacerbation. The patient continues to require oxygen. She is still on doxycycline. She is a smoker. She is on nebulizers. Was on Spiriva in the past but never used consistently She still continues to cough. She has been on Lasix 40 mg twice daily. Repeat x-ray today did show some improvement but still pulmonary congestion is noted. The patient still continues to sleep poorly in the hospital. She complains of back pain, sleeping in the chair. She sleeps for 1 hour or so at a time. The patient did get Klonopin last evening. OBJECTIVE: Vital Signs: Her temperature is 98.1, pulse 110/63, respiratory rate 14, and O2 of 84% on room air and 95% on 2 L. General: She is in no acute distress. Heart: Regular rate and rhythm. S1, S2 without murmur. Lungs: Lung sounds are clear to auscultation bilaterally without crackles or wheezes. Extremities: Warm and dry. She does have 1+ edema. Overall much improved today. LABORATORY DATA: Lab work today does show her sodium 141, potassium 4.5, chloride 98, bicarbonate 52, BUN 35, and creatinine 1.4, which has improved. White count 4.6, hemoglobin 11.2, and platelets 110. ASSESSMENT: 1. Acute heart failure exacerbation. This is a new diagnosis, systolic versus diastolic or both. Outpatient echo planned. 2. Acute on chronic chronic obstructive pulmonary disease with exacerbation. She is on doxycycline and nebulizers. We will start her on brovana and budesonide. 3. Acute hypoxic respiratory failure secondary to congestive heart failure and chronic obstructive pulmonary disease. 4. Essential hypertension. Blood pressures are improved. 5. Acute on chronic renal failure, improving. She is near baseline. 6. Type 2 diabetes, controlled off metformin. 7. Depression, recently started on bupropion. 8. Insomnia. I am going to actually change her Klonopin to p.r.n. and encourage her to try a tramadol for back pain. 9. Back pain and osteoarthritis. She has chronically taken tramadol at home but has not taken any in many days here at the hospital. 10.CO2 retention due to chronic obstructive pulmonary disease. She is unable to tolerate BiPAP. 11.Smoking. 12.Hypothyroidism. PLAN: At this point, the patient will continue on swing bed cares. She would really like to return home. However, given wound cares on her legs, superficial breakdown of skin, needing support stockings, needing assistance with some ADLs, and making some progress with therapy but still having a difficult time walking more than about 30 feet due to dyspnea, I encouraged the patient to stay. She is hopeful to go home in the next couple of nights. MKA: 09/17/2019 17:59:07 MODL: 09/17/2019 18:35:04 /[id number] MTDD
[2019-09-17] MEDS: Simvastatin 10 MG Tab PO SCH (20:25)
[2019-09-17] MEDS: Acetaminophen/Diphenhydramine 500-25 MG Tab PO PRN (20:25)
[2019-09-17] MEDS: traMADol 50 MG Tab PO PRN (20:27)
[2019-09-18] MEDS: Levothyroxine 125 MCG Tab PO SCH (06:16)
[2019-09-18] MEDS: Albuterol/Ipratropium 3.0-0.5 MG/3 ML Neb Soln NEB SCH ×3 (06:16→22:30)
[2019-09-18] MEDS: Lactobacillus Rhamnosus GG (Probiotic) Cap PO SCH (08:42)
[2019-09-18] MEDS: buPROPion 150 MG Tab.ER PO SCH (08:42)
[2019-09-18] MEDS: Aspirin 81 MG Tab.EC PO SCH (08:42)
[2019-09-18] MEDS: Torsemide 20 MG Tab PO SCH ×2 (08:42→15:59)
[2019-09-18] MEDS: Doxycycline 100 MG Cap PO SCH ×2 (08:42→19:49)
[2019-09-18] MEDS: Nicotine 14 MG/24 Hr Patch TRDERM SCH (08:42)
[2019-09-18] MEDS: Arformoterol 15 MCG/2 ML Neb Soln NEB SCH ×2 (11:20→19:48)
[2019-09-18] MEDS: Budesonide 0.5 MG/2 ML Neb Susp NEB SCH ×2 (11:21→19:48)
[2019-09-18] MEDS: Simvastatin 10 MG Tab PO SCH (19:50)
[2019-09-18] MEDS: traMADol 50 MG Tab PO PRN (21:00)
[2019-09-18] MEDS: Acetaminophen/Diphenhydramine 500-25 MG Tab PO PRN (21:00)
[2019-09-19 05:47] VITALS: BP 111/73; PULSE 95
[2019-09-19] MEDS: Budesonide 0.5 MG/2 ML Neb Susp NEB SCH (06:05)
[2019-09-19] MEDS: Albuterol/Ipratropium 3.0-0.5 MG/3 ML Neb Soln NEB SCH (06:05)
[2019-09-19] MEDS: Levothyroxine 125 MCG Tab PO SCH (06:06)
[2019-09-19] MEDS: Arformoterol 15 MCG/2 ML Neb Soln NEB SCH (06:06)
[2019-09-19] MEDS: Nicotine 14 MG/24 Hr Patch TRDERM SCH (07:42)
[2019-09-19] MEDS: Torsemide 20 MG Tab PO SCH (07:43)
[2019-09-19] MEDS: Lactobacillus Rhamnosus GG (Probiotic) Cap PO SCH (07:43)
[2019-09-19] MEDS: Aspirin 81 MG Tab.EC PO SCH (07:43)
[2019-09-19] MEDS: buPROPion 150 MG Tab.ER PO SCH (07:43)
--- NOTE | 2019-09-19 15:38 | DISCH ---
PRIMARY DISCHARGE DIAGNOSES: 1. Acute heart failure exacerbation, new diagnosis, unknown if systolic or diastolic. Outpatient echocardiogram scheduled. 2. Acute on chronic chronic obstructive pulmonary disease with exacerbation. The patient improved with doxycycline and nebulizers. She previously took Spiriva. We will restart that at home. She was not interested in starting up nebulizers, but we will definitely order it if needed. 3. Acute hypoxic respiratory failure secondary to congestive heart failure and chronic obstructive pulmonary disease. 4. Essential hypertension. 5. Acute on chronic renal failure. Her creatinine had improved to her baseline around 1.4 on discharge. Previously, it was 1.3. Her highest creatinine was 1.8. 6. Depression, recently started on bupropion. 7. Diabetes type 2, well controlled blood sugars off metformin. 8. Insomnia. 9. Chronic pain due to osteoarthritis. She took her tramadol actually quite infrequently here. She takes no more than 100 mg a day at home. 10.CO2 retention. Advised that she cannot have any sleeping pills with the pain pills, due to that the patient was unable to tolerate BiPAP. 11.Smoking. She is quitting on the nicotine patch. 12.Hypothyroidism. REASON FOR ADMISSION: On the date of admission, this 78-year-old female who had been in the clinic the previous week for new symptoms of heart failure, was started on Lasix, but she presented to the clinic that morning with O2 saturations of 50% and was transitioned over to the emergency room. The patient was given 60 mg of IV Lasix, and her condition improved. However, she was quite hypotensive and could not get any Lasix for the next day, and then on the next day, we started 20 mg IV twice daily and transitioned her over to oral Lasix twice daily but then decided that Demadex 20 mg twice daily would likely work best for her. She continued to have massive leg swelling despite Tubigrips due to her spending all her time in the chair and not being able to keep her feet up much. She did develop some areas of skin breakdown from the weeping in both medial ankles, but they were not venous stasis ulcers at this point, and they were just covered with a padded dressing and the Tubigrips. It was not felt that they would need any aggressive wound cares. The patient was quite weak and deconditioned, therefore, did physical therapy and completed with them until she was near. The patient was able to walk 30 feet on 2 L of oxygen. She was 89%, but on her home O2 evaluation today, she required up to 5 L. She states her cough was getting better. It had gotten worse when she came in, and she completed a week of doxycycline. She stayed above 90% on 2 L. She was 80% on room air on her testing. She is mobile in her home but admits she does not do a lot of walking. Discussed with her daughter, there is possibility that they are even going to bring her to her daughter's home, so she can further recover. She did receive a few doses of Klonopin to help with sleep due to her being in the chair, which she was uncomfortable with, but once we resumed the tramadol for pain then this Klonopin was discontinued. The patient is on a nicotine patch. She plans to not return to smoking if she can. It was discussed with her that smoking could lead to further lung decline and even within the next few years, and if she was going to go that route, I would even consider hospice. The patient's troponins were monitored and were normal. Her pCO2 was around 80, and venous recheck was about the same, but she was never overly sedated. DISCHARGE PLANS AND INSTRUCTIONS: The patient is going home with home health. She will follow up in the clinic with Dr. Winter with BMP and CBC at that time. Home health will do 3 times a week dressing changes with a padded dressing and her Tubigrips to her legs to help with swelling and prevent further skin breakdown. She will be working with home PT. She will go back on Spiriva. Her albuterol inhaler was refilled. She will take aspirin 81 mg daily. She will be off lisinopril, Lasix, and hydrochlorothiazide and be on Demadex 20 mg twice daily. She will also be off metformin. All blood sugars were excellent during her stay. Discharge [id number] encounter occurred with myself on 09/19/2019. Primary reason for home health is for nursing for teaching and assessments with a new diagnosis of heart failure and worsening of her COPD, and PT to work with her for her mobility and gait to improve her endurance and strength in her home to prevent falls. Due to her needing oxygen and impaired mobility from dyspnea, absences from home are infrequent and required taxing effort. I will periodically review this plan of care. On discharge, the patient states she is not short of breath unless she is up and moving. PHYSICAL EXAMINATION: Vital Signs: Her weight is 92.4 kg. Temperature 97.3, pulse 95, blood pressure 122/71, respiratory rate 18, and O2 of 92% on 2 L. General: She is in no acute distress. Heart: Regular rate and rhythm. S1, S2 without murmur. Lungs: Lung sounds are clear to auscultation bilaterally without crackles or wheezes. Extremities: Warm and dry. She has 2+ edema with the CURTIS stocks in place. Mental Status: Otherwise, her mental status, she is alert and orientated x3. Psychiatric: She does seem depressed. Greater than 30 minutes spent on this discharge process. MKA: 09/19/2019 13:43:33 MODL: 09/19/2019 15:33:02 /[id number]
== END 2019-09-19 13:25 | disposition home health service (06) | DRG 291 ==
LOC: VM.MS 20:08
PROVIDERS: ADMIT Internal Medicine; ATTEND Internal Medicine
DX: I13.0 Hypertensive heart and chronic kidney disease with heart failure and stage 1 through stage 4 chronic kidney disease, or unspecified chronic kidney disease (principal); J96.01 Acute respiratory failure with hypoxia; I50.43 Acute on chronic combined systolic (congestive) and diastolic (congestive) heart failure; N17.9 Acute kidney failure, unspecified; F32.9 Major depressive disorder, single episode, unspecified; E11.22 Type 2 diabetes mellitus with diabetic chronic kidney disease; N18.9 Chronic kidney disease, unspecified; M19.90 Unspecified osteoarthritis, unspecified site; G89.29 Other chronic pain; F17.200 Nicotine dependence, unspecified, uncomplicated; E03.9 Hypothyroidism, unspecified; J44.9 Chronic obstructive pulmonary disease, unspecified; E66.9 Obesity, unspecified; E55.9 Vitamin D deficiency, unspecified; G47.30 Sleep apnea, unspecified; M54.9 Dorsalgia, unspecified; Z79.84 Long term (current) use of oral hypoglycemic drugs; Z79.890 Hormone replacement therapy; Z79.899 Other long term (current) drug therapy; Z99.81 Dependence on supplemental oxygen; Z68.33 Body mass index [BMI] 33.0-33.9, adult
CPT/HCPCS: 36415; 71046; 80048; 82962; 85025; 94640; 94668; 97110-GP; 97116-GP; A9270-GY; J7620-GY

== ENCOUNTER 2020-07-10 17:04 | Emergency (ER) | payer MEDICARE ==
[2020-07-10] MEDS ORDERED: LORazepam 0.5 MG Tab PO ONE (17:17)
--- NOTE | 2020-07-10 17:23 | EDM.PDOC ---
ED HPI GENERAL MEDICAL PROBLEM - General Chief Complaint: Behavioral/Psych Stated Complaint: ANXIETY AND RESPIRATORY Time Seen by Provider: 07/10/20 17:13 Source of Information: Reports: Patient History Limitations: Reports: No Limitations - History of Present Illness INITIAL COMMENTS - FREE TEXT/NARRATIVE: Patient comes from home to the emergency department today with complaints of a panic attack. Patient has a pretty good extensive history of congestive heart failure hypertension coronary artery disease COPD who continues to smoke and is on oxygen therapy at home. She for the last week or so has really struggled with sleeping. She is afraid to be at home by herself. She is anxious constantly. She is very nervous and unable to sleep. She has had some change in her medications recently where they started her on trazodone to try to help with her anxiety and her sleep patterns although it has not helped and actually made her worse so she can discontinued this about 1 week ago. Last night about 2:00 in the morning she was unable to sleep she called her son to come over because she was anxious she did not feel comfortable being at home by herself. She is not suicidal. She is not homicidal. She is not hearing voices or hearing things that are not there. She is not seeing people that are not there. She just is very anxious to the point today where she was supposed to go get her second Covid vaccine and was too anxious to leave the house. She contacted her daughter and said there is something wrong I am too anxious and need to go to the emergency department. She does complain of shortness of breath but this is chronic for her and she is at her baseline. No cough or congestion. No tightness in her chest no chest pain. No worse cough than normal. No fever no chills. No increased amount of sputum production from her COPD. No abdominal pain nausea or vomiting. No hematuria dysuria or urinary frequency. No black or tarry stools. No hallucinations delusions. No suicidal or homicidal ideation. No self cutting or thoughts of self-harm. She just feels very anxious and she is unable to calm down. - Related Data Allergies Allergy/AdvReac Type Severity Reaction Status Date / Time Penicillins Allergy Cannot Verified 07/10/20 17:39 Remember Home Meds: Home Meds Acetaminophen/Diphenhydramine [Acetaminophen Pm Gelcap] 1 each PO BEDTIME PRN 10/19/13 [History] Albuterol Sulfate [Albuterol Sulfate HFA] 2 puff IH Q4H PRN 10/19/13 [History] Cholecalciferol (Vitamin D3) [Vitamin D3] 2,000 unit PO DAILY 10/19/13 [History] Levothyroxine 125 mcg PO ACBRK 10/19/13 [History] Mag Hydrox/Aluminum Hyd/Simeth [Alum-Mag Hydroxide-Simeth Liq] 1 tab PO DAILY 10/19/13 [History] Simvastatin 10 mg PO DAILY 10/19/13 [History] traMADol [Ultram] 100 mg PO DAILY PRN 10/19/13 [History] buPROPion HCL [Wellbutrin SR] 150 mg PO DAILY 09/10/19 [History] Aspirin [Halfprin] 81 mg PO WITHBREAKFAST tab.ec 09/19/19 [Rx] Docusate Sodium/Sennosides [Senna Plus] 1 tab PO BID tablet 09/19/19 [Rx] Lactobacillus Rhamnosus GG [Culturelle] 1 cap PO DAILY cap 09/19/19 [Rx] Nicotine [Habitrol] 14 mg TRDERM DAILY #30 patch 09/19/19 [Rx] Tiotropium [place] [Spiriva Respimat] 4 gm IH DAILY #1 mist.inhal 09/19/19 [Rx] Torsemide [Demadex] 20 mg PO BIDDIURETIC #60 tablet 09/19/19 [Rx] buPROPion [buPROPion XL] 150 mg PO BID tab.er 09/19/19 [Rx] LORazepam [Ativan] 0.5 mg PO BID PRN #6 tablet 07/10/20 [Rx] Past Medical History HEENT History: Reports: Cataract Cardiovascular History: Reports: High Cholesterol, Hypertension Respiratory History: Reports: Asthma, Bronchitis, Recurrent, COPD Other Respiratory History: Denies any significant respiratory history, however does have Spiriva Inhaler and Albuterol prescibed to her that she uses when the weather is humid Gastrointestinal History: Reports: None Genitourinary History: Reports: UTI, Recurrent Musculoskeletal History: Reports: Back Pain, Chronic, Osteoarthritis Other Musculoskeletal History: Has history of chronic back pain that she states has had since she was 7-8 years old. Also, states has some arthritis in her back. Neurological History: Reports: None Endocrine/Metabolic History: Reports: Diabetes, Type II, Hypothyroidism, Other (See Below) Other Endocrine/Metabolic History: goiter, mgd Hematologic History: Reports: Other (See Below) Other Hematologic History: hypocalcemia, vit d def, Oncologic (Cancer) History: Reports: Bladder Dermatologic History: Reports: Psoriasis - Past Surgical History HEENT Surgical History: Reports: Cataract Surgery Female Surgical History: Reports: Section, D&C, Tubal Ligation Social & Family History - Family History Family Medical History: No Pertinent Family History Endocrine/Metabolic: Reports: Diabetes, type II - Caffeine Use Caffeine Use: Reports: Coffee, Soda - Living Situation & Occupation Living situation: Reports: Alone Occupation: Unemployed ED ROS GENERAL - Review of Systems Review Of Systems: Comprehensive ROS is negative, except as noted in HPI. ED EXAM, GENERAL - Physical Exam Exam: See Below Free Text/Narrative:: The patient does appear quite anxious eyes darting around the room. Talking rapidly although able to speech in full sentences and does not appear in respiratory distress. Exam Limited By: No Limitations General Appearance: Alert, WD/WN, Anxious Eye Exam: Bilateral Eye: EOMI, PERRL Ears: Normal External Exam Nose: Normal Inspection Throat/Mouth: Normal Inspection Head: Atraumatic, Normocephalic Neck: Normal Inspection, Supple, Non-Tender Respiratory/Chest: No Respiratory Distress, No Accessory Muscle Use, Chest Non- Tender, Decreased Breath Sounds, Wheezing (faint expiratory wheezing oseas aterally. ). No: Accessory Muscle Use Cardiovascular: Normal Peripheral Pulses, Regular Rate, Rhythm GI/Abdominal: Normal Bowel Sounds, Soft (Female) Exam: Deferred Rectal (Female) Exam: Deferred Back Exam: Normal Inspection, Full Range of Motion Extremities: Normal Inspection, Normal Range of Motion, Normal Capillary Refill, Pedal Edema (1+ bilaterally =) Neurological: Alert, Oriented, CN II-XII Intact, Normal Cognition, No Motor/Sensory Deficits Psychiatric: Normal Affect, Normal Mood Skin Exam: Warm, Dry, Intact, Normal Color, No Rash Lymphatic: No Adenopathy Course - Vital Signs Last Recorded V/S: Last Vital Signs Temp 97.9 F 07/10/20 17:40 Pulse 88 07/10/20 17:40 Resp 17 07/10/20 17:40 BP 134/65 07/10/20 17:40 Pulse Ox 97 07/10/20 17:40 - Orders/Labs/Meds Meds: Medications Discontinued Medications Generic Name Dose Route Start Last Admin Trade Name Brinda PRN Reason Stop Dose Admin Lorazepam 0.5 mg 07/10/20 17:17 07/10/20 17:26 Lorazepam 0.5 Mg Tab PO 07/10/20 17:18 0.5 mg ONETIME ONE Administration Lorazepam 1 packet 07/10/20 18:12 07/10/20 18:17 Take Home: Lorazepam 0.5 Mg Tab, 2 Tab Pack PO 07/10/20 18:13 1 packet ONETIME ONE Administration - Re-Assessments/Exams Free Text/Narrative Re-Assessment/Exam: 07/11/20 03:01 Although the patient has quite the past medical history she is quite adamant t hat it is a panic attack. WE will try some ativan and if her symptoms do not improve we will work her up further. Lorazepam 0.5mg PO Very shortly after the ativan she relates that she is 100% better and back to baseline. She does not feel anxious and feels good and wants to go home. We will discharge her home with a short course of low dose bid lorazepam for her anxiety. She really needs to visit with her PCP about other avenues of therapy for her anxiety and her lack of sleep. She is comfortable with this plan and her questions answered. Departure - Departure Time of Disposition: 18:15 Disposition: Home, Self-Care 01 Clinical Impression: Panic attack - Discharge Information Prescriptions: LORazepam [Ativan] 0.5 mg PO BID PRN #6 tablet PRN Reason: Anxiety Instructions: Panic Attack, [id number] Referrals: Andei Hernandez, [Primary Care Provider] - Forms: ED Department Discharge Additional Instructions: Contact Dr. Elkin Hernandez tomorrow to discuss your anxiety as well as your sleep habits. Lorazepam 1 tablet twice daily as needed for panic attacks and sleep. Caution sedation. Do not take with any other sleeping or pain medications. Try to keep a sleep diary when you go to sleep how long you sleep and how often. Return to the ED if new or worsening symptoms. Sepsis Event Note (ED) - Focused Exam Vital Signs: Vital Signs Temp Pulse Resp BP Pulse Ox 07/10/20 17:40 97.9 F 88 17 134/65 97
[2020-07-10 17:47] VITALS: BP 134/65; PULSE 88
[2020-07-10] MEDS ORDERED: Take Home: LORazepam 0.5 MG Tab, 2 Tab Pack PO ONE (18:12)
== END 2020-07-10 18:24 | disposition home or self-care (01) ==
LOC: VM.ED 17:04
DX: F41.0 Panic disorder [episodic paroxysmal anxiety] (principal); R60.0 Localized edema; E78.00 Pure hypercholesterolemia, unspecified; I10 Essential (primary) hypertension; E11.9 Type 2 diabetes mellitus without complications; E03.9 Hypothyroidism, unspecified; Z88.0 Allergy status to penicillin; Z79.899 Other long term (current) drug therapy
CPT/HCPCS: 99283; A9270-GY

== ENCOUNTER 2021-06-11 17:34 | Emergency (ER) | payer MEDICARE ==
[2021-06-11] MEDS ORDERED: Sodium Chloride 0.9% 10 ML Syringe FLUSH PRN (17:51)
[2021-06-11 18:18] LABS: PTT,PARTIAL THROMBOPLSTIN TIME 21.9 SEC (20.5-30.9)
[2021-06-11 18:24] LABS: CHLORIDE,CL 97 mmol/L (98-107); SODIUM,NA 138 mmol/L (136-145)
[2021-06-11 18:25] LABS: ANION GAP 11.5 mmol/L (5-15)
[2021-06-11] MEDS ORDERED: Sodium Chloride 0.9% 500 ML IV ONE (19:42)
== END 2021-06-11 20:30 | disposition home or self-care (01) ==
LOC: VM.ED 17:34
DX: S06.0X0A Concussion without loss of consciousness, initial encounter (principal); N17.9 Acute kidney failure, unspecified; E78.00 Pure hypercholesterolemia, unspecified; I10 Essential (primary) hypertension; J44.9 Chronic obstructive pulmonary disease, unspecified; E11.9 Type 2 diabetes mellitus without complications; E03.9 Hypothyroidism, unspecified; Z88.0 Allergy status to penicillin; W23.1XXA Caught, crushed, jammed, or pinched between stationary objects, initial encounter
CPT/HCPCS: 36415; 70450; 80053; 85025; 85610; 85730; 94760; 99284; 99284-25; J7030

== ENCOUNTER 2021-09-15 08:20 | Emergency (ER) | payer MEDICARE ==
[2021-09-15] MEDS ORDERED: Lidocaine 1% 30 ML SDV INJECT ONE (08:38)
[2021-09-15 08:53] VITALS: BP 123/88; PULSE 65
== END 2021-09-15 09:50 ==
LOC: VM.ED 08:20
DX: S01.81XA Laceration without foreign body of other part of head, initial encounter (principal); E78.00 Pure hypercholesterolemia, unspecified; I10 Essential (primary) hypertension; E11.9 Type 2 diabetes mellitus without complications; E03.9 Hypothyroidism, unspecified; J44.9 Chronic obstructive pulmonary disease, unspecified; Z88.0 Allergy status to penicillin; Z91.018 Allergy to other foods; Z79.899 Other long term (current) drug therapy; Z79.82 Long term (current) use of aspirin; Z79.02 Long term (current) use of antithrombotics/antiplatelets; W05.0XXA Fall from non-moving wheelchair, initial encounter
CPT/HCPCS: 12015; 12016; 99283